=== PATIENT | female | born 1970 | race Two or more races ===

== ENCOUNTER 2018-06-13 14:23 | Emergency (ER) | payer MEDICAID, OTHER ==
[~2018-06-13] VITALS: Ht 160 cm; Wt 68.0 kg
[2018-06-13 14:54] VITALS: BP 129/83
[2018-06-13] MEDS ORDERED: LOPERAMIDE 2 MG/10ml ORAL soln PO ONE (15:30)
== END 2018-06-13 16:15 | disposition home or self-care (01) ==
LOC: ER 14:27
DX: J20.9 Acute bronchitis, unspecified (principal); R19.7 Diarrhea, unspecified; F41.9 Anxiety disorder, unspecified